=== PATIENT | female | born 1965 | race Caucasian/White ===

== ENCOUNTER 2019-02-03 02:22 | Emergency (ER) | payer OTHER ==
[2019-02-03] MEDS: LORAZEPAM 2 MG INJ IM (03:37)
== END 2019-02-03 04:10 | disposition home or self-care (01) ==
LOC: E/R 02:22
DX: F10.920 Alcohol use, unspecified with intoxication, uncomplicated (principal)
CPT/HCPCS: 99282; Z7502